=== PATIENT | male | born 1995 | race Caucasian/White ===

== ENCOUNTER 2016-10-24 20:26 | Emergency (ER) | payer OTHER ==
[~2016-10-24] VITALS: Ht 167.6 cm; Wt 62.6 kg
[2016-10-24 20:41] VITALS: TEMP 36.5; Ht 167.6 cm; Wt 62.6 kg
--- NOTE | 2016-10-24 21:21 | EMERGENCY ROOM VISIT NOTE ---
ED Visit Note First contact with patient: 21:01 CHIEF COMPLAINT: Hand injury HISTORY OF PRESENT ILLNESS: This 21-year-old male patient presented to the emergency department after they injured the left hand while mountain biking this morning at approximately 11 AM. The patient rates the pain as throbbing and 5/10. The patient denies any numbness or tingling. The patient denies any pain in the wrist. He has broken the left wrist in the past. He has not taken anything for pain. REVIEW OF SYSTEMS: A 6 system review of systems was completed with positives and pertinent negatives in the HPI. ALLERGIES: No known drug allergies MEDICATIONS: None PMH: Otherwise healthy SOCIAL HISTORY: He does not smoke or drink alcohol. He is a [employer] student PHYSICAL EXAM: Vital Signs: Reviewed Nurse's notes, vital signs stable. GENERAL : 21-year-old male, in no acute distress, but appears to be in pain, well- developed, well-nourished. MUSCULOSKELETAL: There is no deformity of the left hand. There is tenderness over the thenar aspect of the palm. There is no thenar or hypothenar eminence atrophy. Normal thumb opposition to all fingers. Satellite Specialist strength 4/5. There is no laceration. Capillary refill less than 2 seconds. No tenderness of the fingers or wrist. Full range of motion of the wrist. No snuff box tenderness. Radial pulse 2+. NEURO: Alert and oriented to person, place, and time. Normal sensation to light and sharp touch. EMERGENCY DEPARTMENT COURSE: I examined the patient. An x-ray of the left hand was reviewed LEFT HAND MIN 3 VIEWS ROUTINE CLINICAL HISTORY: Left hand pain following injury. COMPARISON: Left wrist radiographs October 31, 2014. FINDINGS: Alignment of left hand is anatomic. No acute fracture is identified. There is no acute fracture within the left carpal bones. IMPRESSION: No acute fracture or dislocation of the left hand. Electronically signed by: Cali Ta M.D. 10/24/2016 10:10 PM Dictated Date/Time: 10/24/2016 10:08 PM The status of this report is Signed. Draft = Not yet reviewed or approved by Radiologist. Signed = Reviewed and approved by Radiologist. <AttendingPhy></AttendingPhy> <FamilyPhy>No Doctor, Assigned</FamilyPhy> < PrimaryPhy>No Doctor, Assigned</PrimaryPhy> <UnitNumber>[id number]</UnitNumber> <VisitNumber>[id number]</VisitNumber> <PatientName>EVETTE MTZ</PatientName > <DateOfBirth>1995</DateOfBirth> <Location>[facility]</Location> <ServiceDate> 10/24/16</ServiceDate> <MNE>ESINDI</MNE> <OrderingPhy>Larisa Kelley PA-C</ OrderingPhy> <OrderingPhyMNE>[facility] The findings were discussed with the patient. He voiced understanding. The patient was discharged home in good condition. DIAGNOSIS: Left hand contusion DISCHARGE INSTRUCTIONS: Ice and elevation for 24-48 hrs. Tylenol and ibuprofen for pain Ibuprofen 800 mg and/or Tylenol 1000 mg every 8 hours. You may also alternate these medications for more effective pain relief: Ibuprofen --4 HRS--> Tylenol --4 HRS--> ibuprofen --4 HRS--> Tylenol .... If there is no improvement, please see [facility] or an orthopedic doctor in 7 days. You are welcome to return to the emergency department with any worsening symptoms.
--- NOTE | 2016-10-24 22:11 | DIAGNOSTIC IMAGING REPORT ---
LEFT HAND MIN 3 VIEWS ROUTINE CLINICAL HISTORY: Left hand pain following injury. COMPARISON: Left wrist radiographs October 31, 2014. FINDINGS: Alignment of left hand is anatomic. No acute fracture is identified. There is no acute fracture within the left carpal bones. IMPRESSION: No acute fracture or dislocation of the left hand. Electronically signed by: Cali Ta M.D. 10/24/2016 10:10 PM Dictated Date/Time: 10/24/2016 10:08 PM
[2016-10-24 22:30] VITALS: BP 120/72; PULSE 58; O2SAT 97
== END 2016-10-24 22:30 | disposition home or self-care (01) ==
LOC: C.EDB 20:27 → C.EDD 22:30
DX: S60.222A Contusion of left hand, initial encounter (principal); X58.XXXA Exposure to other specified factors, initial encounter

== ENCOUNTER 2016-11-16 17:43 | Emergency (ER) | payer OTHER ==
[~2016-11-16] VITALS: Ht 167.6 cm; Wt 61.1 kg
[2016-11-16 17:59] VITALS: TEMP 36.8; Ht 167.6 cm; Wt 61.1 kg
--- NOTE | 2016-11-16 18:35 | EMERGENCY ROOM VISIT NOTE ---
ED Visit Note First contact with patient: 18:02 CHIEF COMPLAINT: Wrist injury HISTORY OF PRESENT ILLNESS: This 21-year-old male patient presents to the emergency department ambulatory complaining of pain in the left wrist after tripping and falling onto an outstretched hand. Patient states he was walking to class and tripped. He fell forward onto both outstretched hands. He states the right hand and wrist is not painful. He complains of pain in the left wrist and hand. The patient is able to move their wrist. The patient states the pain is sharp and 4/10. No laceration, no weakness. No numbness or tingling. There are a few superficial abrasions to the palm of the hands. The patient denies any other injury. The patient is able to move their fingers and elbow without difficulty. The patient has previous injuries to this wrist, scaphoid fracture and saw Dr. Dorantes's office. The patient has taken nothing for the pain. REVIEW OF SYSTEMS: A 6 system review of systems was performed with positives and pertinent negatives in the HPI. ALLERGIES: No known drug allergies MEDICATIONS: None PMH: None SOCIAL HISTORY: The patient lives locally. He is a [employer] student. He does not smoke PHYSICAL EXAM: Vital Signs: Reviewed Nurse's notes, vital signs stable. GENERAL : This is a 21-year-old male, in no acute distress, but appears to be in pain, well-developed, well-nourished. NEURO: Alert and oriented to person place and time. Normal sensation to light and sharp touch. MUSCULOSKELETAL: There is no deformity of the left wrist. There is no erythema and no ecchymosis. There is no edema. Tenderness over distal radius and ulna. There is no snuff box tenderness. There is tenderness with flexion and extension. Range of motion is intact. There is no tenderness of the elbow, or fingers. There is tenderness to palpation to the heel of the hand whether is a superficial abrasion. Flat Bed Operator strength 5/5. Radial pulse 2+. SKIN: There are superficial, nonbleeding abrasions to the bilateral palms. The hand is warm and well perfused with capillary refill less than 2 seconds. EMERGENCY DEPARTMENT COURSE: I examined the patient. An X-ray of the left hand and wrist were reviewed by myself and radiology and showed no fracture or dislocation. The abrasions were cleaned and dressed. A a removable thumb spica splint was placed under my direction and the position was satisfactory. Neurovascular status rechecked and intact. The patient was discharged home in good condition. L HAND MIN 3 VIEWS ROUTINE, L WRIST W/NAVICULAR MIN 3 VIEWS CLINICAL HISTORY: fall, left hand injury. Left wrist injury and pain. COMPARISON STUDY: Left hand 10/24/2016. Left wrist 10/31/2014. FINDINGS: Old, healed scaphoid fracture. No acute fracture or dislocation within the left hand or left wrist. Soft tissues are unremarkable. No radiopaque foreign bodies. IMPRESSION: No acute fracture or dislocation within the left hand or left wrist. Problem List Medical Problems: (1) No significant medical problems Status: Chronic Surgical Problems: (1) No significant past surgical history Status: Chronic Current/Historical Medications No Active Prescriptions or Reported Meds Allergies Coded Allergies: No Known Allergies (Unverified , 11/16/16) Vital Signs Date Time Temp Pulse Resp B/P (MAP) Pulse Ox O2 Delivery O2 Flow Rate FiO2 11/16/16 17:59 36.8 76 16 121/70 99 Room Air Departure Information Impression Primary Impression: Wrist pain, left Additional Impression: Abrasion Dispostion Home / Self-Care Condition GOOD Prescriptions No Active Prescriptions or Reported Meds Referrals No Doctor, Assigned (PCP) Jad Dorantes M.D. Patient Instructions ED Sprain Wrist, [facility] Additional Instructions Wear the wrist splint for 4 - 5 days until the pain subsides. Ice and keep the wrist elevated for 24-48 hrs. Ibuprofen, 600mg every 6 hours if needed for the pain. Follow up with your family doctor or orthopedic surgeon if symptoms persist in 5-7 days. Problem Qualifiers
--- NOTE | 2016-11-16 19:17 | DIAGNOSTIC IMAGING REPORT ---
L HAND MIN 3 VIEWS ROUTINE, L WRIST W/NAVICULAR MIN 3 VIEWS CLINICAL HISTORY: fall, left hand injury. Left wrist injury and pain. COMPARISON STUDY: Left hand 10/24/2016. Left wrist 10/31/2014. FINDINGS: Old, healed scaphoid fracture. No acute fracture or dislocation within the left hand or left wrist. Soft tissues are unremarkable. No radiopaque foreign bodies. IMPRESSION: No acute fracture or dislocation within the left hand or left wrist. Electronically signed by: Ace Sapp M.D. 11/16/2016 7:15 PM Dictated Date/Time: 11/16/2016 7:09 PM
[2016-11-16 19:43] VITALS: BP 106/59; PULSE 79; O2SAT 99
== END 2016-11-16 19:45 | disposition home or self-care (01) ==
LOC: C.EDB 17:45 → C.EDD 19:45
DX: M25.532 Pain in left wrist (principal); S60.511A Abrasion of right hand, initial encounter; S60.512A Abrasion of left hand, initial encounter; W01.0XXA Fall on same level from slipping, tripping and stumbling without subsequent striking against object, initial encounter; Y93.01 Activity, walking, marching and hiking

== ENCOUNTER → 2017-03-22 | Outpatient (CLI) | payer OTHER ==
--- NOTE | 2017-03-22 15:25 | DIAGNOSTIC IMAGING REPORT ---
R ANKLE MIN 3 VIEWS HISTORY: 21 years-old Male RIGHT ANKLE PAIN acute right ankle pain COMPARISON: None available TECHNIQUE: 3 views of the right ankle FINDINGS: There is no acute fracture, dislocation or significant degenerative changes. No osteochondral defect or intra-articular loose body. There is mild circumferential soft tissue swelling about the ankle with small joint effusion. IMPRESSION: 1. No acute fracture identified. 2. Small joint effusion with mild circumferential soft tissue swelling. The above report was generated using voice recognition software. It may contain grammatical, syntax or spelling errors. Electronically signed by: Emeterio Mendes M.D. 03/22/2017 3:23 PM Dictated Date/Time: 03/22/2017 3:22 PM
== END | disposition home or self-care (01) ==
LOC: C.RDSM 08:00
PROVIDERS: ATTEND Family Medicine
DX: M25.571 Pain in right ankle and joints of right foot (principal); M25.471 Effusion, right ankle